=== PATIENT | female | born 1995 | race Two or more races ===

== ENCOUNTER 2022-02-26 06:32 | Outpatient (CLI) | payer OTHER | END 2022-02-26 06:33 | disposition home or self-care (01) | LOC: LAB 06:32 | DX: E78.2 Mixed hyperlipidemia (principal); N39.0 Urinary tract infection, site not specified; E53.8 Deficiency of other specified B group vitamins; I11.0 Hypertensive heart disease with heart failure; E03.9 Hypothyroidism, unspecified; E55.9 Vitamin D deficiency, unspecified; E11.9 Type 2 diabetes mellitus without complications; D64.9 Anemia, unspecified ==

== ENCOUNTER 2022-02-26 07:15 | Outpatient (CLI) | payer OTHER | END 2022-02-26 07:17 | disposition home or self-care (01) | LOC: RAD 07:15 | DX: I10 Essential (primary) hypertension (principal) ==

== ENCOUNTER 2022-07-04 07:30 | Outpatient (CLI) | payer OTHER | END 2022-07-04 07:37 | disposition home or self-care (01) | LOC: LAB 07:30 | PROVIDERS: ATTEND Obstetrics & Gynecology | DX: N80.00 Endometriosis of the uterus, unspecified (principal) ==

== ENCOUNTER → 2022-07-04 | Outpatient (CLI) | payer OTHER | END | disposition home or self-care (01) | LOC: SONOGRAMA 07:52 | PROVIDERS: ATTEND Obstetrics & Gynecology | DX: R10.2 Pelvic and perineal pain (principal); N80.00 Endometriosis of the uterus, unspecified ==

== ENCOUNTER 2022-09-21 15:23 | Emergency (ER) | payer OTHER ==
[~2022-09-21] VITALS: Ht 152.4 cm; Wt 68.0 kg
== END 2022-09-21 21:50 | disposition home or self-care (01) ==
LOC: ER 15:23
DX: K52.9 Noninfective gastroenteritis and colitis, unspecified (principal); A05.9 Bacterial foodborne intoxication, unspecified

== ENCOUNTER 2022-11-15 07:12 | Outpatient (CLI) | payer OTHER | END 2022-11-15 07:15 | disposition home or self-care (01) | LOC: LAB 07:12 | PROVIDERS: ATTEND Obstetrics & Gynecology | DX: N80.9 Endometriosis, unspecified (principal); E55.0 Rickets, active ==

== ENCOUNTER 2022-11-15 07:44 | Outpatient (CLI) | payer OTHER | END 2022-11-15 07:50 | disposition home or self-care (01) | LOC: SONOGRAMA 07:44 | PROVIDERS: ATTEND Obstetrics & Gynecology | DX: N80.9 Endometriosis, unspecified (principal) ==

== ENCOUNTER → 2023-02-21 07:09 | Outpatient (CLI) | payer OTHER | END | disposition home or self-care (01) | LOC: LAB 07:09 | PROVIDERS: ATTEND Obstetrics & Gynecology | DX: E55.0 Rickets, active (principal) ==

== ENCOUNTER → 2023-02-21 | Outpatient (CLI) | payer OTHER | END | disposition home or self-care (01) | LOC: SONOGRAMA 07:39 | PROVIDERS: ATTEND Obstetrics & Gynecology | DX: R10.2 Pelvic and perineal pain (principal) ==

== ENCOUNTER → 2023-05-23 06:47 | Outpatient (CLI) | payer OTHER ==
[2023-05-23 07:39] LABS: URINE APPEARANCE Clear; URINE BILIRRUBIN Negative (NEGATIVE); URINE BLOOD Negative; URINE COLOR Yellow; URINE GLUCOSE Negative (NEGATIVE); URINE LEUKOCYTE Negative; URINE NITRATE Negative; URINE PROTEIN Negative (NEGATIVE); URINE UROBILINOGEN 0.2 E.U./dl
[2023-05-23 07:43] LABS: URINE BACTERIA 59.1 uL (0.0-1933); URINE EPITHELIAL CELLS 2.1 uL (0.0-38.8)
[2023-05-23 07:50] LABS: HEMATOCRIT 39.2 % (36.0-45.00); HEMOGLOBIN 13.5 g/dL (12.0-15.00); MEAN CELL VOLUME 84.6 fL (80.00-100.00); MEAN CORPUSCULAR HEMOGLOBIN 29.1 pg (27.00-32.0); MEAN CORPUSCULAR HGB CONC 34.4 g/dl (32.0-36.0); PLATELET COUNT 301 K/uL (150-450); RED BLOOD COUNT 4.64 M/uL (4.00-6.00)
[2023-05-23 08:32] LABS: URINE RBC 1.5 uL (0.0-20.8); URINE WBC 1.3 uL (0.0-23.2)
[2023-05-23 08:38] LABS: ALBUMIN 3.9 gm/dL (3.4-5.0); BILIRUBIN TOTAL 0.73 mg/dL (0.3-1.2); CALCIUM 9.6 mg/dL (8.5-10.1); CHOL HDL RATIO 2.6 (0-5.0); CREATININE SERUM 0.71 mg/dL (0.55-1.02); GFR 99.51; GLOBULINA 3.9 G/DL (2.4-3.5); POTASSIUM 4.27 mEq/L (3.5-5.1); TOTAL PROTEIN 7.8 gm/dL (6.4-8.2); TSH 1.27 uIU/mL (0.358-3.74)
[2023-05-23 09:48] LABS: VITAMIN D3 25 HYDROXY 44.72 ng/ml (30-120)
== END | disposition home or self-care (01) ==
LOC: LAB 06:47
DX: I11.0 Hypertensive heart disease with heart failure (principal); D64.9 Anemia, unspecified; E11.9 Type 2 diabetes mellitus without complications; E78.2 Mixed hyperlipidemia; N39.0 Urinary tract infection, site not specified; E55.9 Vitamin D deficiency, unspecified; E03.9 Hypothyroidism, unspecified; E53.8 Deficiency of other specified B group vitamins

== ENCOUNTER 2023-05-23 07:33 | Outpatient (CLI) | payer OTHER | END 2023-05-23 07:35 | disposition home or self-care (01) | LOC: RAD 07:33 | DX: M54.50 Low back pain, unspecified (principal); M54.2 Cervicalgia; M41.84 Other forms of scoliosis, thoracic region ==

== ENCOUNTER 2024-07-06 08:00 | Outpatient (CLI) | payer OTHER | END 2024-07-06 23:00 | disposition home or self-care (01) | LOC: LAB 08:00 | DX: D68.9 Coagulation defect, unspecified (principal); E11.9 Type 2 diabetes mellitus without complications; E03.9 Hypothyroidism, unspecified; D64.9 Anemia, unspecified; N39.0 Urinary tract infection, site not specified; E53.8 Deficiency of other specified B group vitamins; I10 Essential (primary) hypertension; E78.2 Mixed hyperlipidemia; E55.9 Vitamin D deficiency, unspecified ==

== ENCOUNTER → 2024-07-06 10:00 | Outpatient (CLI) | payer OTHER | END | disposition home or self-care (01) | LOC: RAD 10:00 | DX: M25.512 Pain in left shoulder (principal) ==